=== PATIENT | male | born 1950 | race Caucasian/White ===

== ENCOUNTER 2017-02-25 00:46 | Emergency (ER) | payer OTHER ==
[~2017-02-25] VITALS: Ht 180.3 cm; Wt 80.3 kg
[~2017-02-25 00:46] MED LIST: ASPI-498 OR; FLUO0.05 TOP; LOSA100T26 PO; METO-158; METO25TA5 PO; PRO125RS PO; TRAM50TA2 PO
[2017-02-25 01:20] LABS: Basophils # (auto) 0 uL; Eosinophils # (auto) 0 uL; Hematocrit 34.1 % (41.0-53.0); Hemoglobin 11.2 g/dL (13.5-17.5); Lymphocytes # (auto) 0.5 uL; Lymphocytes % (auto) 6.8 % (10.0-50.0); Mean Corpuscular Hemoglobin 30.2 pg (28.0-32.0); Mean Corpuscular Hgb Conc. 32.9 g/dL (32.0-36.0); Mean Corpuscular Volume 91.9 fL (80.0-100.0); Mean Platelet Volume 8.1 fL (7.4-10.4); Monocytes # (auto) 0.2 uL; Monocytes % (auto) 2.2 % (0.0-12.0); Neutrophils # (auto) 7.1 uL; Platelet Count (auto) 219 10^3/uL (140-450); Red Cell Distribution Width 16.2 % (11.6-16.0); SUSPECT VIEW TRANSMISSION; White Blood Cell 7.8 10^3/uL (4.4-10.8)
[2017-02-25 01:36] LABS: INR 0.98 (0.9-1.15); Partial Thromboplastin Time 23.8 sec (22.64-33.71); Prothrombin Time 10.7 sec (9.37-12.3)
[2017-02-25 01:39] LABS: Albumin 2.5 g/dL (3.4-5.0); BUN/Creatinine Ratio 16.4; Calcium 8.4 mg/dL (8.5-10.1); Magnesium 2.2 mg/dL (1.6-2.6); Potassium 4.5 mmol/L (3.5-5.1)
[2017-02-25 01:44] LABS: Bilirubin, Total 0.7 mg/dL (0.2-1.0); Total Protein 6.8 g/dL (6.4-8.2)
[2017-02-25] MEDS ORDERED: ENOXAPARIN SOD 80 MG/0.8ML SYRINGE SC ONE (02:15)
[2017-02-25 05:55] VITALS: BP 139/58
[2017-02-25] MEDS ORDERED: traMADol HCL 50 MG TAB PO PRN (06:00)
[2017-02-25] MEDS ORDERED: NALBUPHINE HCL 10 MG/1ml INJECTION IV PRN (06:00)
[2017-02-25] MEDS ORDERED: ACETAMINOPHEN 325 MG TAB PO PRN (06:15)
[2017-02-25] MEDS ORDERED: ALBUTEROL SULF 2.5 MG/0.5ML(0.5%) NEB SOLN NEB PRN (06:15)
[2017-02-25] MEDS ORDERED: PROMETHAZINE HCL 25 MG/ML 1ML IV PRN (06:15)
[2017-02-25] MEDS ORDERED: MORPHINE SULF INJ 2 MG/ML SYRINGE 1ML IV PRN (06:15)
[2017-02-25] MEDS ORDERED: NITROGLYCERIN 0.4 MG SL TAB SL PRN (06:15)
[2017-02-25] MEDS ORDERED: TEMAZEPAM 15 MG CAP PO PRN (06:15)
[2017-02-25] MEDS ORDERED: IOHEXOL 350 MG/ML 100ML IJ ONE (06:17)
[2017-02-25] MEDS ORDERED: ASPirin 81 mg TAB PO SCH (10:00)
[2017-02-25] MEDS ORDERED: HCTZ 25 MG TAB PO SCH (10:00)
[2017-02-25] MEDS ORDERED: METOPROLOL SUCCINATE XL 50 MG TAB PO SCH (10:00)
[2017-02-25] MEDS ORDERED: FAMOTIDINE 20 MG TAB PO SCH (10:00)
[2017-02-25] MEDS ORDERED: ENOXAPARIN SOD 40 MG/0.4 ML SYRINGE SC SCH (10:00)
[2017-02-25] MEDS ORDERED: LOSARTAN POTASSIUM 25 MG TAB PO SCH (10:00)
== END 2017-02-25 06:18 | disposition home or self-care (01) ==
LOC: EDBD 00:46 → ER 00:49
DX: I24.9 Acute ischemic heart disease, unspecified (principal); I11.0 Hypertensive heart disease with heart failure; I50.9 Heart failure, unspecified; I25.10 Atherosclerotic heart disease of native coronary artery without angina pectoris; J44.9 Chronic obstructive pulmonary disease, unspecified; Z88.6 Allergy status to analgesic agent; Z88.0 Allergy status to penicillin; Z88.8 Allergy status to other drugs, medicaments and biological substances
CPT/HCPCS: 36415; 71010; 80053; 83735; 84484; 85025; 85379; 85610; 85730; 87081; 93005; 96372; 99285; J1650

== ENCOUNTER 2019-05-05 05:06 | Emergency (ER) | payer MEDICARE, OTHER ==
[~2019-05-05] VITALS: Ht 162.6 cm; Wt 90.7 kg
[~2019-05-05 05:06] MED LIST changes: -LOSA100T26 PO; +LOSA100T33 PO
[2019-05-05 05:22] VITALS: BP 126/80
== END 2019-05-05 07:39 | disposition left against medical advice (07) ==
LOC: EDBD 05:06 → ER 05:11
DX: R07.9 Chest pain, unspecified (principal); Z53.21 Procedure and treatment not carried out due to patient leaving prior to being seen by health care provider

== ENCOUNTER 2019-05-06 10:51 | Inpatient (IN) | payer MEDICARE, OTHER ==
[~2019-05-06] VITALS: Ht 180.3 cm; Wt 83.9 kg
[2019-05-06] MEDS ORDERED: SODIUM CHLORIDE 0.9% 500 ML IV ONE (11:03)
[2019-05-06] MEDS ORDERED: METOCLOPRAMIDE HCL 5MG/ml INJ 2ml VIAL IV ONE (11:15)
[2019-05-06] MEDS ORDERED: HYDROmorphone HCL 2 MG/ML VL IV ONE ×2 (11:15→13:15)
[2019-05-06] MEDS ORDERED: METOPROLOL TARTRATE 25 MG TAB PO ONE (11:15)
[2019-05-06 11:42] LABS: Alanine Aminotransferase 25 U/L (16-61); Albumin 3.9 g/dL (3.4-5.0); Anion Gap 11 (5-15); Aspartate Aminotransferase 19 U/L (15-37); Blood Urea Nitrogen 26 mg/dL (7-18); Calcium 9.4 mg/dL (8.5-10.1); Carbon Dioxide 20 mmol/L (21-32); Chloride 108 mmol/L (98-107); Glucose 100 mg/dL (74-106); Magnesium 2.4 mg/dL (1.6-2.6); Potassium 3.3 mmol/L (3.5-5.1); Sodium 139 mmol/L (136-145)
[2019-05-06] MEDS ORDERED: PROMETHAZINE HCL 25 MG/ML 1ML IV ONE ×2 (11:45→15:15)
[2019-05-06] MEDS ORDERED: ASPirin 81 mg TAB PO ONE (11:45)
[2019-05-06 11:48] LABS: Alkaline Phosphatase 82 U/L (45-117); BUN/Creatinine Ratio 20.2; Bilirubin, Total 0.7 mg/dL (0.2-1.0); GFR African American 72 mL/min; GFR Non-African American 59 mL/min; Total Protein 8.1 g/dL (6.4-8.2)
[2019-05-06 11:52] LABS: Basophils # (auto) 0.1 uL; Basophils % (auto) 0.8 % (0.0-2.0); Eosinophils # (auto) 0.2 uL; Eosinophils % (auto) 1.6 % (0.0-7.0); Hemoglobin 14.6 g/dL (13.5-17.5); Lymphocytes % (auto) 19.3 % (10.0-50.0); Mean Corpuscular Hemoglobin 32.2 pg (28.0-32.0); Mean Corpuscular Hgb Conc. 33.9 g/dL (32.0-36.0); Monocytes # (auto) 1.1 uL; Monocytes % (auto) 10.4 % (0.0-12.0); Neutrophils % (auto) 67.9 % (37.0-80.0); Platelet Count (auto) 309 10^3/uL (140-450); Red Blood Cells 4.52 10^6/uL (4.5-5.90); White Blood Cell 10.3 10^3/uL (4.4-10.8)
[2019-05-06 12:15] LABS: INR 0.99 (0.9-1.15); Partial Thromboplastin Time 25.7 sec (23.64-32.05)
[2019-05-06] MEDS ORDERED: POTASSIUM CHL 10 Meq TABLET PO ONE (13:15)
[2019-05-06] MEDS ORDERED: IOHEXOL 350 MG/ML 100ML IJ ONE (13:23)
[2019-05-06] MEDS: HYDROmorphone HCL 2 MG/ML VL IV PRN (20:05)
[2019-05-06] MEDS: TICAGRELOR 90 MG TAB PO SCH (21:26)
[2019-05-06 22:57] VITALS: BP 123/74
[2019-05-07] MEDS ORDERED: DIGO50SO2 PO (00:25)
[2019-05-07] MEDS ORDERED: TICA90TA PO (00:25)
[2019-05-07] MEDS: HYDROmorphone HCL 2 MG/ML VL IV PRN ×6 (00:57→21:35)
[2019-05-07] MEDS: PROMETHAZINE HCL 25 MG/ML 1ML IV PRN ×5 (01:08→21:35)
[2019-05-07 05:00] VITALS: BP 154/79
[2019-05-07 08:46] VITALS: BP 130/67
[2019-05-07] MEDS: TICAGRELOR 90 MG TAB PO SCH ×2 (09:45→21:35)
[2019-05-07 13:00] VITALS: BP 128/71
[2019-05-07 16:51] VITALS: BP 143/76
[2019-05-07 22:00] VITALS: BP 114/66
[2019-05-08] MEDS: PROMETHAZINE HCL 25 MG/ML 1ML IV PRN ×5 (01:52→18:24)
[2019-05-08] MEDS: HYDROmorphone HCL 2 MG/ML VL IV PRN ×5 (01:52→18:24)
[2019-05-08 06:56] VITALS: BP 156/71
[2019-05-08 09:00] VITALS: BP 134/93
[2019-05-08] MEDS: TICAGRELOR 90 MG TAB PO SCH (10:15)
[2019-05-08 13:00] VITALS: BP 127/74
[2019-05-08] MEDS ORDERED: POTASSIUM CHL 20 Meq TABLET PO ONE (13:45)
[2019-05-08 15:33] VITALS: BP 127/77
[2019-05-08 17:00] VITALS: BP 162/72
[2019-05-08 19:00] VITALS: BP 146/85
== END 2019-05-08 19:40 | disposition home or self-care (01) | DRG 303 ==
LOC: ER 10:52 → TELE 10:53 → TELE-EAST 22:18
PROVIDERS: ADMIT Specialist; ATTEND Specialist
DX: I25.119 Atherosclerotic heart disease of native coronary artery with unspecified angina pectoris (principal); F11.20 Opioid dependence, uncomplicated; L40.9 Psoriasis, unspecified; I50.9 Heart failure, unspecified; I11.0 Hypertensive heart disease with heart failure; F41.9 Anxiety disorder, unspecified; F32.9 Major depressive disorder, single episode, unspecified; J44.9 Chronic obstructive pulmonary disease, unspecified; I25.2 Old myocardial infarction; Z88.8 Allergy status to other drugs, medicaments and biological substances; Z88.6 Allergy status to analgesic agent; Z88.5 Allergy status to narcotic agent; Z90.49 Acquired absence of other specified parts of digestive tract; Z95.5 Presence of coronary angioplasty implant and graft; Z82.49 Family history of ischemic heart disease and other diseases of the circulatory system; Z72.89 Other problems related to lifestyle; Z79.899 Other long term (current) drug therapy
CPT/HCPCS: 36415; 71045; 71275; 80053; 83735; 83880; 84484; 85025; 85379; 85610; 85730; 87081; 93005; 94761; 96361; 96374; 96375; 96376; G0378

== ENCOUNTER 2019-06-26 17:57 | Emergency (ER) | payer MEDICARE, OTHER ==
[~2019-06-26] VITALS: Ht 180.3 cm; Wt 77.1 kg
[~2019-06-26 17:57] MED LIST changes: -ASPI-498 OR; +DIGO50SO2 PO; -METO25TA5 PO; +TICA90TA PO; -TRAM50TA2 PO
[2019-06-26 19:25] LABS: Basophils # (auto) 0 uL; Basophils % (auto) 0.1 % (0.0-2.0); Eosinophils # (auto) 0 uL; Eosinophils % (auto) 0.1 % (0.0-7.0); Hematocrit 51.1 % (41.0-53.0); Hemoglobin 17.1 g/dL (13.5-17.5); Lymphocytes # (auto) 1.5 uL; Lymphocytes % (auto) 12.4 % (10.0-50.0); Mean Corpuscular Hemoglobin 31.3 pg (28.0-32.0); Mean Corpuscular Hgb Conc. 33.5 g/dL (32.0-36.0); Mean Corpuscular Volume 93.5 fL (80.0-100.0); Monocytes # (auto) 0.4 uL; Monocytes % (auto) 3.4 % (0.0-12.0); Neutrophils # (auto) 10.3 uL; Nucleated Red Blood Cells % 0.2 %; Platelet Count (auto) 279 10^3/uL (140-450); Red Blood Cells 5.46 10^6/uL (4.5-5.90); Red Cell Distribution Width 15.1 % (11.8-14.3); White Blood Cell 12.3 10^3/uL (4.4-10.8)
[2019-06-26 19:33] LABS: Albumin 4.1 g/dL (3.4-5.0); Anion Gap 10 (5-15); Blood Urea Nitrogen 22 mg/dL (7-18); Calcium 9.9 mg/dL (8.5-10.1); Carbon Dioxide 22 mmol/L (21-32); Chloride 108 mmol/L (98-107); Glucose 114 mg/dL (74-106); Magnesium 2.1 mg/dL (1.6-2.6); Potassium 4.2 mmol/L (3.5-5.1); Sodium 140 mmol/L (136-145)
[2019-06-26 19:36] LABS: Alanine Aminotransferase 56 U/L (16-61); Alkaline Phosphatase 78 U/L (45-117); Aspartate Aminotransferase 36 U/L (15-37); BUN/Creatinine Ratio 16.2; Bilirubin, Total 1.1 mg/dL (0.2-1.0); GFR African American 67 mL/min; GFR Non-African American 56 mL/min; Total Protein 8.1 g/dL (6.4-8.2)
[2019-06-26] MEDS ORDERED: ASPirin-EC 325mg tab PO ONE (21:30)
[2019-06-26] MEDS ORDERED: MORPHINE SULFATE 4 MG/ML SYR/VIAL IV ONE (21:30)
[2019-06-26] MEDS ORDERED: PROMETHAZINE HCL 25 MG/ML 1ML IV ONE (23:00)
[2019-06-27] VITALS: BP 134/92
[2019-06-27] MEDS ORDERED: HYDROmorphone HCL 2 MG/ML VL IV ONE (00:45)
[2019-06-27 01:19] LABS: INR 1.01 (0.9-1.15)
== END 2019-06-27 01:13 | disposition home or self-care (01) ==
LOC: ER 18:01
DX: R07.89 Other chest pain (principal); I11.0 Hypertensive heart disease with heart failure; I50.9 Heart failure, unspecified; J44.9 Chronic obstructive pulmonary disease, unspecified; Z98.61 Coronary angioplasty status; Z90.49 Acquired absence of other specified parts of digestive tract; Z88.0 Allergy status to penicillin; Z88.6 Allergy status to analgesic agent
CPT/HCPCS: 36415; 71046; 80053; 83735; 84484; 85025; 85610; 85730; 93005; 96374; 96375; 99284; J1170; J2270; J2550

== ENCOUNTER 2019-07-25 16:58 | Inpatient (IN) | payer MEDICARE, OTHER ==
[~2019-07-25] VITALS: Ht 180.3 cm; Wt 76.4 kg
[2019-07-25] MEDS ORDERED: ASPirin 81 mg TAB PO ONE (20:15)
[2019-07-25] MEDS ORDERED: PROMETHAZINE HCL 25 MG/ML 1ML IV ONE (20:15)
[2019-07-25] MEDS ORDERED: MORPHINE SULFATE 4 MG/ML SYR/VIAL IV ONE (20:15)
[2019-07-25 21:50] LABS: Basophils # (auto) 0 uL; Basophils % (auto) 0.3 % (0.0-2.0); Eosinophils # (auto) 0 uL; Eosinophils % (auto) 0.6 % (0.0-7.0); Hematocrit 40.7 % (41.0-53.0); Hemoglobin 13.8 g/dL (13.5-17.5); Lymphocytes % (auto) 13.5 % (10.0-50.0); Mean Corpuscular Hemoglobin 32.5 pg (28.0-32.0); Mean Corpuscular Volume 95.6 fL (80.0-100.0); Monocytes # (auto) 0.7 uL; Monocytes % (auto) 8.8 % (0.0-12.0); Neutrophils # (auto) 5.9 uL; Neutrophils % (auto) 76.8 % (37.0-80.0); Nucleated Red Blood Cells % 0.3 %; Platelet Count (auto) 173 10^3/uL (140-450); Red Blood Cells 4.25 10^6/uL (4.5-5.90); Red Cell Distribution Width 16.5 % (11.8-14.3); White Blood Cell 7.7 10^3/uL (4.4-10.8)
[2019-07-25 21:59] LABS: Albumin 3.4 g/dL (3.4-5.0); Anion Gap 9 (5-15); Blood Urea Nitrogen 11 mg/dL (7-18); Calcium 9.6 mg/dL (8.5-10.1); Carbon Dioxide 21 mmol/L (21-32); Chloride 109 mmol/L (98-107); Glucose 77 mg/dL (74-106); Potassium 3.6 mmol/L (3.5-5.1); Sodium 139 mmol/L (136-145)
[2019-07-25 22:06] LABS: Alanine Aminotransferase 36 U/L (16-61); Alkaline Phosphatase 71 U/L (45-117); Aspartate Aminotransferase 27 U/L (15-37); BUN/Creatinine Ratio 13.8; Bilirubin, Total 1.4 mg/dL (0.2-1.0); GFR African American 124 mL/min; GFR Non-African American 102 mL/min; Total Protein 6.8 g/dL (6.4-8.2)
[2019-07-26] VITALS (7 sets, daily range): BP systolic 109–137; BP diastolic 71–78
[2019-07-26] MEDS ORDERED: ACETAMINOPHEN 325 MG TAB PO PRN (00:45)
[2019-07-26] MEDS ORDERED: LABETALOL HCL 5 MG/ML ML 20ML VIAL IV ONE (00:45)
[2019-07-26] MEDS ORDERED: TEMAZEPAM 15 MG CAP PO PRN (00:45)
[2019-07-26] MEDS ORDERED: HYDROcodone-ACET 5/325MG TAB PO PRN (00:45)
[2019-07-26] MEDS ORDERED: NITROGLYCERIN 0.4 MG SL TAB SL PRN ×2 (01:15→01:45)
[2019-07-26] MEDS ORDERED: MORPHINE SULF INJ 2 MG/ML SYRINGE 1ML IV PRN ×2 (01:15→01:45)
[2019-07-26] MEDS ORDERED: SODIUM CHLORIDE 0.9% 500 ML IV ONE (01:30)
[2019-07-26] MEDS ORDERED: LORazepam 0.5 MG TAB PO ONE (01:45)
[2019-07-26] MEDS ORDERED: LEVOFLOXACIN 500MG 100 ML IV ONE (02:00)
[2019-07-26 02:48] LABS: INR 0.99 (0.9-1.15); Partial Thromboplastin Time 25.5 sec (23.64-32.05)
[2019-07-26] MEDS: OXYCODONE W/ ACETAMINOPHEN 5/325MG TABLET PO PRN ×3 (03:33→18:41)
[2019-07-26] MEDS ORDERED: PERCOT PO (05:53)
[2019-07-26] MEDS ORDERED: DIGO0.1262 PO (05:53)
[2019-07-26] MEDS: ASPirin 81 mg TAB PO SCH (09:32)
[2019-07-26] MEDS: FAMOTIDINE 20 MG TAB PO SCH ×2 (09:34→21:11)
[2019-07-26] MEDS ORDERED: HYDROmorphone HCL 2 MG/ML VL IV ONE (10:45)
[2019-07-26] MEDS ORDERED: PROMETHAZINE HCL 25 MG/ML 1ML IV ONE (10:45)
[2019-07-26] MEDS ORDERED: ADENOSINE 69 MG in GIVE UN-DILUTED 0 ML IV STA (10:59)
[2019-07-26] MEDS: RANOLAZINE ER 500 MG TAB PO SCH ×2 (14:48→21:11)
[2019-07-26] MEDS: METOPROLOL SUCCINATE XL 50 MG TAB PO SCH (14:48)
[2019-07-26] MEDS: LOSARTAN POTASSIUM 25 MG TAB PO SCH (14:49)
[2019-07-26] MEDS: TICAGRELOR 90 MG TAB PO SCH ×2 (14:49→20:45)
[2019-07-26] MEDS: HCTZ 25 MG TAB PO SCH (14:50)
[2019-07-26] MEDS ORDERED: ATORVASTATIN 20 MG TAB PO SCH (22:00)
[2019-07-27] MEDS ORDERED: LEVOFLOXACIN 500MG 100 ML IV SCH
[2019-07-27] MEDS: OXYCODONE W/ ACETAMINOPHEN 5/325MG TABLET PO PRN ×2 (01:15→09:44)
[2019-07-27 09:05] VITALS: BP 118/64
[2019-07-27 09:30] LABS: BUN/Creatinine Ratio 13.8; Calcium 9.3 mg/dL (8.5-10.1); Potassium 3.7 mmol/L (3.5-5.1)
[2019-07-27 09:33] LABS: Cholesterol 138 mg/dL (< 200)
[2019-07-27 09:38] LABS: HDL Cholesterol 51 mg/dL (40-59); LDL Cholesterol 74 mg/dL (< 100); Triglycerides 131 mg/dL (< 150)
[2019-07-27] MEDS: TICAGRELOR 90 MG TAB PO SCH (09:44)
[2019-07-27] MEDS: ASPirin 81 mg TAB PO SCH (09:44)
[2019-07-27] MEDS: RANOLAZINE ER 500 MG TAB PO SCH (09:44)
[2019-07-27] MEDS: LOSARTAN POTASSIUM 25 MG TAB PO SCH (09:45)
[2019-07-27] MEDS: HCTZ 25 MG TAB PO SCH (09:46)
[2019-07-27] MEDS: METOPROLOL SUCCINATE XL 50 MG TAB PO SCH (09:46)
[2019-07-27] MEDS: FAMOTIDINE 20 MG TAB PO SCH (09:48)
[2019-07-27] MEDS ORDERED: LEVO500T21 PO (10:52)
[2019-07-27] MEDS ORDERED: HYDROmorphone HCL 2 MG/ML VL IV ONE (11:30)
[2019-07-27] MEDS ORDERED: PROMETHAZINE HCL 25 MG/ML 1ML IM ONE (11:30)
[2019-07-27] MEDS ORDERED: PROMETHAZINE HCL 25 MG/ML 1ML IV ONE (11:45)
[2019-07-27 12:14] VITALS: BP 118/64
[2019-07-27 12:45] VITALS: BP 117/75
== END 2019-07-27 14:30 | disposition home or self-care (01) | DRG 291 ==
LOC: ER 16:58 → TELE 16:59 → TELE-WESTW 07-26 03:08
PROVIDERS: ADMIT Nurse Practitioner; ATTEND Internal Medicine
DX: I11.0 Hypertensive heart disease with heart failure (principal); J18.9 Pneumonia, unspecified organism; I50.43 Acute on chronic combined systolic (congestive) and diastolic (congestive) heart failure; I25.10 Atherosclerotic heart disease of native coronary artery without angina pectoris; E78.00 Pure hypercholesterolemia, unspecified; E78.5 Hyperlipidemia, unspecified; I70.0 Atherosclerosis of aorta; F41.9 Anxiety disorder, unspecified; J44.9 Chronic obstructive pulmonary disease, unspecified; I25.2 Old myocardial infarction; Z95.5 Presence of coronary angioplasty implant and graft; Z88.0 Allergy status to penicillin; Z88.8 Allergy status to other drugs, medicaments and biological substances; Z91.048 Other nonmedicinal substance allergy status; Z90.49 Acquired absence of other specified parts of digestive tract; Z82.61 Family history of arthritis; Z82.49 Family history of ischemic heart disease and other diseases of the circulatory system; Z82.3 Family history of stroke; Z83.6 Family history of other diseases of the respiratory system; Z79.899 Other long term (current) drug therapy
CPT/HCPCS: 36415; 71045; 78452; 80048; 80053; 80061; 83880; 84484; 85025; 85379; 85610; 85730; 93017; 93306; 94761; 96365; 96375; G0378; J0153; J1956

== ENCOUNTER 2019-10-24 08:44 | Emergency (ER) | payer MEDICARE, OTHER ==
[~2019-10-24] VITALS: Ht 180.3 cm; Wt 77.1 kg
[~2019-10-24 08:44] MED LIST changes: +DIGO0.12 PO; -DIGO50SO2 PO; +LEVO500T21 PO; +PERCOT PO
[2019-10-24] MEDS ORDERED: SODIUM CHLORIDE 0.9% 1,000 ML IV ONE (09:18)
[2019-10-24 09:33] LABS: Basophils # (auto) 0.1 uL; Basophils % (auto) 0.7 % (0.0-2.0); Eosinophils # (auto) 0.1 uL; Eosinophils % (auto) 0.7 % (0.0-7.0); Hematocrit 43.7 % (41.0-53.0); Hemoglobin 14.9 g/dL (13.5-17.5); Lymphocytes # (auto) 2.9 uL; Lymphocytes % (auto) 29.3 % (10.0-50.0); Mean Corpuscular Volume 94.2 fL (80.0-100.0); Monocytes # (auto) 0.7 uL; Monocytes % (auto) 7.1 % (0.0-12.0); Neutrophils # (auto) 6.1 uL; Neutrophils % (auto) 62.2 % (37.0-80.0); Platelet Count (auto) 231 10^3/uL (140-450); Red Blood Cells 4.64 10^6/uL (4.5-5.90); White Blood Cell 9.8 10^3/uL (4.4-10.8)
[2019-10-24 09:53] LABS: Alanine Aminotransferase 48 U/L (16-61); Albumin 3.7 g/dL (3.4-5.0); Anion Gap 12 (5-15); Aspartate Aminotransferase 19 U/L (15-37); BUN/Creatinine Ratio 24.2; Blood Urea Nitrogen 24 mg/dL (7-18); Calcium 8.9 mg/dL (8.5-10.1); Carbon Dioxide 23 mmol/L (21-32); Chloride 104 mmol/L (98-107); GFR African American 97 mL/min; GFR Non-African American 80 mL/min; Glucose 90 mg/dL (74-106); Potassium 3.5 mmol/L (3.5-5.1); Sodium 139 mmol/L (136-145)
[2019-10-24 09:58] LABS: Alkaline Phosphatase 102 U/L (45-117); Bilirubin, Total 0.7 mg/dL (0.2-1.0); Total Protein 7.9 g/dL (6.4-8.2)
[2019-10-24] MEDS ORDERED: LORazepam 2MG/ML-1ML VIAL IV ONE (13:00)
[2019-10-24 13:04] LABS: Urine Bacteria NONE SEEN /hpf (None Seen); Urine Blood Negative /uL (Negative); Urine Mucus FEW (None Seen); Urine Specific Gravity 1.025 (1.001-1.035); Urine WBC 1 /hpf (0 - 3)
[2019-10-24 13:24] LABS: Amphetamine Screen, Urine NEGATIVE (NEGATIVE); Barbiturate Scree,Urine NEGATIVE (NEGATIVE); Benzodiazephine Screen, Urine NEGATIVE (NEGATIVE); Cannabinoid Screen, Urine NEGATIVE (NEGATIVE); Cocaine Screen, Urine NEGATIVE (NEGATIVE); Opiate Scree,Urine POSITIVE (NEGATIVE); Phencyclidine Screen, Urine NEGATIVE (NEGATIVE)
[2019-10-24 13:26] VITALS: BP 147/92
== END 2019-10-24 14:14 | disposition home or self-care (01) ==
LOC: ER 08:44
DX: R07.89 Other chest pain (principal); I25.2 Old myocardial infarction; I25.10 Atherosclerotic heart disease of native coronary artery without angina pectoris; I11.0 Hypertensive heart disease with heart failure; I50.9 Heart failure, unspecified; J44.9 Chronic obstructive pulmonary disease, unspecified; E78.5 Hyperlipidemia, unspecified; Z90.49 Acquired absence of other specified parts of digestive tract; Z79.2 Long term (current) use of antibiotics; Z79.899 Other long term (current) drug therapy; Z88.0 Allergy status to penicillin; Z88.5 Allergy status to narcotic agent; Z88.8 Allergy status to other drugs, medicaments and biological substances
CPT/HCPCS: 36415; 71046; 80053; 80162; 80307; 81001; 83735; 84443; 84484; 85025; 93005; 96374; 99284; J2060; J7030

== ENCOUNTER 2020-03-22 07:42 | Emergency (ER) | payer MEDICARE, OTHER ==
[~2020-03-22] VITALS: Ht 180.3 cm; Wt 72.6 kg
[2020-03-22 09:11] VITALS: BP 150/84
[2020-03-22] MEDS ORDERED: PROMETHAZINE HCL 25 MG/ML 1ML IV ONE (10:00)
[2020-03-22] MEDS ORDERED: HYDROmorphone HCL 2 MG/ML VL IV ONE (10:00)
[2020-03-22] MEDS ORDERED: PROMETHAZINE HCL 25 MG/ML 1ML IM ONE (10:30)
[2020-03-22] MEDS ORDERED: HYDROmorphone HCL 2 MG/ML VL IM ONE (10:30)
== END 2020-03-22 10:34 | disposition home or self-care (01) ==
LOC: ER 07:42
DX: G89.18 Other acute postprocedural pain (principal); M25.561 Pain in right knee; I11.0 Hypertensive heart disease with heart failure; I50.9 Heart failure, unspecified; J44.9 Chronic obstructive pulmonary disease, unspecified; E78.5 Hyperlipidemia, unspecified; I25.2 Old myocardial infarction; Z90.49 Acquired absence of other specified parts of digestive tract; Z98.61 Coronary angioplasty status; Z88.0 Allergy status to penicillin; Z88.6 Allergy status to analgesic agent; Z88.8 Allergy status to other drugs, medicaments and biological substances
CPT/HCPCS: 93971; 96372

== ENCOUNTER 2020-04-22 00:55 | Emergency (ER) | payer MEDICARE, OTHER ==
[~2020-04-22] VITALS: Ht 180.3 cm; Wt 72.6 kg
[2020-04-22 05:15] VITALS: BP 183/92
[2020-04-22] MEDS ORDERED: cloNIDine HCL 0.1 MG TAB ONE (05:18)
[2020-04-22] MEDS ORDERED: cloNIDine HCL 0.1 MG TAB PO ONE (06:00)
[2020-04-22] MEDS ORDERED: ASPirin 81 mg TAB PO ONE (07:30)
== END 2020-04-22 08:26 | disposition left against medical advice (07) ==
LOC: ER 00:56
DX: I11.0 Hypertensive heart disease with heart failure (principal); I50.9 Heart failure, unspecified; J44.9 Chronic obstructive pulmonary disease, unspecified; F41.9 Anxiety disorder, unspecified; E78.5 Hyperlipidemia, unspecified; I25.2 Old myocardial infarction; Z90.49 Acquired absence of other specified parts of digestive tract; Z98.61 Coronary angioplasty status; Z88.0 Allergy status to penicillin; Z88.6 Allergy status to analgesic agent; Z88.8 Allergy status to other drugs, medicaments and biological substances
CPT/HCPCS: 71046; 93005

== ENCOUNTER 2020-05-07 16:14 | Inpatient (IN) | payer MEDICARE, OTHER ==
[~2020-05-07] VITALS: Ht 180.3 cm; Wt 65.8 kg
[2020-05-07 17:51] LABS: Basophils # (auto) 0 10 ^3/uL (0-0.2); Basophils % (auto) 0.5 % (0.0-2.0); Eosinophils # (auto) 0.1 10 ^3/uL (0-0.8); Eosinophils % (auto) 0.8 % (0.0-7.0); Hemoglobin 13.2 g/dL (13.5-17.5); Lymphocytes # (auto) 1.9 10 ^3/uL (0.4-5.4); Lymphocytes % (auto) 21.6 % (10.0-50.0); Mean Corpuscular Hemoglobin 29.2 pg (28.0-32.0); Mean Corpuscular Hgb Conc. 33.1 g/dL (32.0-36.0); Mean Corpuscular Volume 88.4 fL (80.0-100.0); Monocytes % (auto) 11.6 % (0.0-12.0); Neutrophils # (auto) 5.8 10 ^3/uL (1.6-8.6); Neutrophils % (auto) 65.5 % (37.0-80.0); Nucleated Red Blood Cells % 0.1 %; Platelet Count (auto) 250 10^3/uL (140-450); Red Blood Cells 4.52 10^6/uL (4.5-5.90); Red Cell Distribution Width 14.2 % (11.8-14.3); White Blood Cell 8.9 10^3/uL (4.4-10.8)
[2020-05-07 18:07] LABS: INR 1.04 (0.9-1.15); Partial Thromboplastin Time 24.8 sec (23.0-31.2)
[2020-05-07 18:08] LABS: Albumin 3.5 g/dL (3.4-5.0); Anion Gap 6 (5-15); Blood Urea Nitrogen 13 mg/dL (7-18); Calcium 9.8 mg/dL (8.5-10.1); Carbon Dioxide 26 mmol/L (21-32); Chloride 106 mmol/L (98-107); Glucose 112 mg/dL (74-106); Sodium 138 mmol/L (136-145)
[2020-05-07 18:13] LABS: Alanine Aminotransferase 14 U/L (16-61); Alkaline Phosphatase 121 U/L (45-117); Aspartate Aminotransferase 14 U/L (15-37); BUN/Creatinine Ratio 13.8; Bilirubin, Total 0.6 mg/dL (0.2-1.0); GFR African American 103 mL/min; GFR Non-African American 85 mL/min; Total Protein 8.1 g/dL (6.4-8.2)
[2020-05-07 18:25] LABS: Potassium 2.7 mmol/L (3.5-5.1)
[2020-05-07] MEDS ORDERED: HYDROmorphone HCL 2 MG/ML VL IV ONE (21:30)
[2020-05-07] MEDS ORDERED: ASPirin 81 mg TAB PO ONE (21:30)
[2020-05-07] MEDS ORDERED: ONDANSETRON HCL 4 MG/2 ML VIAL IV ONE (21:30)
[2020-05-07] MEDS ORDERED: NITROGLYCERIN 0.4 MG SL TAB SL PRN (22:45)
[2020-05-07] MEDS ORDERED: PROMETHAZINE HCL 25 MG/ML 1ML IV PRN (22:45)
[2020-05-07] MEDS ORDERED: HYDROmorphone HCL 2 MG/ML VL IV PRN (22:45)
[2020-05-07] MEDS ORDERED: MORPHINE SULF INJ 2 MG/ML SYRINGE 1ML IV PRN (22:45)
[2020-05-07 22:59] LABS: Magnesium 2.4 mg/dL (1.6-2.6)
[2020-05-08] MEDS ORDERED: HYDROmorphone HCL 2 MG/ML VL IV PRN (02:45)
[2020-05-08 07:41] VITALS: BP 184/93
[2020-05-08] MEDS ORDERED: ASPirin 81 mg TAB PO ONE (10:00)
[2020-05-08] MEDS ORDERED: CLOPIDOGREL BISULFATE 75 MG TAB PO ONE (10:00)
== END 2020-05-08 08:20 | disposition left against medical advice (07) | DRG 303 ==
LOC: ER 16:14 → TELE 16:15
PROVIDERS: ADMIT Specialist; ATTEND Specialist
DX: I25.110 Atherosclerotic heart disease of native coronary artery with unstable angina pectoris (principal); I70.0 Atherosclerosis of aorta; L40.9 Psoriasis, unspecified; E78.5 Hyperlipidemia, unspecified; I11.0 Hypertensive heart disease with heart failure; I50.9 Heart failure, unspecified; F41.9 Anxiety disorder, unspecified; J44.9 Chronic obstructive pulmonary disease, unspecified; Z79.02 Long term (current) use of antithrombotics/antiplatelets; Z80.0 Family history of malignant neoplasm of digestive organs; I25.2 Old myocardial infarction; Z80.1 Family history of malignant neoplasm of trachea, bronchus and lung; Z80.3 Family history of malignant neoplasm of breast; Z80.42 Family history of malignant neoplasm of prostate; Z80.8 Family history of malignant neoplasm of other organs or systems; Z81.8 Family history of other mental and behavioral disorders; Z82.0 Family history of epilepsy and other diseases of the nervous system; Z82.3 Family history of stroke; Z82.49 Family history of ischemic heart disease and other diseases of the circulatory system; Z82.5 Family history of asthma and other chronic lower respiratory diseases; Z82.62 Family history of osteoporosis; Z83.3 Family history of diabetes mellitus; Z79.899 Other long term (current) drug therapy; Z88.8 Allergy status to other drugs, medicaments and biological substances; Z88.0 Allergy status to penicillin; Z88.5 Allergy status to narcotic agent; Z88.1 Allergy status to other antibiotic agents; Z88.6 Allergy status to analgesic agent; Z53.29 Procedure and treatment not carried out because of patient's decision for other reasons; Z90.49 Acquired absence of other specified parts of digestive tract; Z98.61 Coronary angioplasty status
CPT/HCPCS: 36415; 71046; 80053; 83735; 83880; 84484; 85025; 85610; 85730; 93005; G0378; J2405

== ENCOUNTER 2023-10-13 06:02 | Inpatient (IN) | payer MEDICARE, OTHER ==
[2023-10-08 14:22] LABS: Urine Bacteria NONE SEEN /hpf (None Seen); Urine Blood Negative /uL (Negative); Urine Clarity Clear (Clear); Urine Color Yellow (Yellow); Urine Hyaline Cast FEW /lpf (0 - 2); Urine Protein, UAD TRACE (Negative); Urine Specific Gravity 1.027 (1.001-1.035); Urine Urobilinogen Normal (Negative); Urine WBC 1 /hpf (0 - 3); Urine pH 5.5 (5.0-8.0)
[~2023-10-13] VITALS: Ht 180.3 cm; Wt 79.4 kg
[~2023-10-13 06:02] MED LIST changes: +ATOR10TA52 PO; +CLOP75TA28 PO; -DIGO0.12 PO; +DOXA4TAB83 PO; -FLUO0.05 TOP; +HYDR-4798 PO; -LEVO500T21 PO; -METO-158; +METO-158 PO; +OMEP1CAP70 PO; -PERCOT PO; -PRO125RS PO; -TICA90TA PO
[2023-10-13] MEDS ORDERED: ACETAMINOPHEN IV 1000 MG/100ML (10MG/ML) IV ONE (06:45)
[2023-10-13] MEDS ORDERED: PREGABALIN CAPSULE 75 MG CAP PO ONE (06:45)
[2023-10-13] MEDS ORDERED: BUPIVACAINE 0.25% INJ 50ML VIAL ONE (06:46)
[2023-10-13] MEDS ORDERED: TRANEXAMIC ACID 0 ML ONE (06:46)
[2023-10-13] MEDS ORDERED: VANCOMYCIN HCL 1000 MG VL ONE ×2 (06:48→07:23)
[2023-10-13] MEDS ORDERED: MORPHINE SULF PF 5 MG/10 ML VIAL ONE (06:50)
[2023-10-13] MEDS ORDERED: KETOROLAC TROMETH 30 MG/ML 1ML VIAL ONE (06:50)
[2023-10-13] MEDS ORDERED: LIDOCAINE W/ EPINEPHRINE 2% INJ 20ML VIAL ONE (06:59)
[2023-10-13] MEDS ORDERED: TRANEXAMIC ACID 20 ML ONE (06:59)
[2023-10-13] MEDS ORDERED: BUPIVACAINE HCL 0 ML ONE (07:00)
[2023-10-13] MEDS ORDERED: PROMETHAZINE HCL 25 MG/ML 1ML ONE (07:13)
[2023-10-13] MEDS ORDERED: HYDROmorphone HCL 2 MG/ML VL/or syr IV PRN ×3 (07:15→10:15)
[2023-10-13] MEDS ORDERED: METOCLOPRAMIDE HCL 5MG/ml INJ 2ml VIAL IV PRN (07:15)
[2023-10-13] MEDS ORDERED: ceFAZolin 2 GM/D5W100ml 0 ML IV ONE (07:20)
[2023-10-13] MEDS ORDERED: fentaNYL CITRATE 100 MCG/2 ML VL ONE (07:21)
[2023-10-13] MEDS ORDERED: MIDAZOLAM HCL 2MG/2ML 2ml VIAL (1mg/ml) ONE (07:21)
[2023-10-13] MEDS ORDERED: PROPOFOL 10 MG/ML 20 ML IV ONE ×2 (07:22→10:18)
[2023-10-13] MEDS ORDERED: DexAMETHasone SOD PHOS 10MG/1ML VIAL INJ ONE (07:22)
[2023-10-13] MEDS ORDERED: SODIUM CHLORIDE LOCK 10 ML ONE ×2 (07:22→08:42)
[2023-10-13 07:27] LABS: Basophils # (auto) 0 10 ^3/uL (0-0.2); Basophils % (auto) 0.4 % (0.0-2.0); Eosinophils # (auto) 0.1 10 ^3/uL (0-0.8); Eosinophils % (auto) 0.9 % (0.0-7.0); Hematocrit 38.6 % (41.0-53.0); Hemoglobin 12.9 g/dL (13.5-17.5); Lymphocytes # (auto) 1.8 10 ^3/uL (0.4-5.4); Lymphocytes % (auto) 29.9 % (10.0-50.0); Mean Corpuscular Hemoglobin 29.9 pg (28.0-32.0); Mean Corpuscular Hgb Conc. 33.5 g/dL (32.0-36.0); Mean Corpuscular Volume 89.1 fL (80.0-100.0); Monocytes # (auto) 0.6 10 ^3/uL (0-1.3); Monocytes % (auto) 9.7 % (0.0-12.0); Neutrophils # (auto) 3.6 10 ^3/uL (1.6-8.6); Neutrophils % (auto) 59.1 % (37.0-80.0); Red Blood Cells 4.33 10^6/uL (4.5-5.90); Red Cell Distribution Width 15.3 % (11.8-14.3); White Blood Cell 6.1 10^3/uL (4.4-10.8)
[2023-10-13 07:44] LABS: Partial Thromboplastin Time 28.8 SEC (24.5-34.5); Prothrombin Time 10.5 sec (9.3-11.8)
[2023-10-13] MEDS ORDERED: DexAMETHasone SOD PHOS 4 MG/1ML SDV INJ ONE (08:31)
[2023-10-13] MEDS ORDERED: EPINEPHrine HCL 1 MG/1 ML AMP ONE (08:31)
[2023-10-13] MEDS ORDERED: BUPIVACAINE HCL 50 ML ONE (08:32)
[2023-10-13 08:44] LABS: Alanine Aminotransferase 102 U/L (7-40); Albumin 3.9 g/dL (3.2-4.8); Alkaline Phosphatase 144 U/L (46-116); Aspartate Aminotransferase 56 U/L (13-40); Bilirubin, Total 0.8 mg/dL (0.2-1.0); Calcium 9.2 mg/dL (8.5-10.1); Carbon Dioxide 24 mmol/L (20-30); Glucose 80 mg/dL (74-106); Potassium 3.7 mmol/L (3.5-5.1); Sodium 138 mmol/L (136-145)
[2023-10-13 08:45] LABS: Anion Gap 7 (5-15); BUN/Creatinine Ratio 10.7 (10.0-20.0); Blood Urea Nitrogen 9 mg/dL (9-23); Chloride 107 mmol/L (98-107); Total Protein 6.6 g/dL (5.7-8.2)
[2023-10-13] MEDS ORDERED: LIDOCAINE 2% JELLY 11ml (GLYDO) ONE (10:07)
[2023-10-13] MEDS ORDERED: ONDANSETRON HCL 4 MG/2 ML VIAL IV PRN (10:15)
[2023-10-13] MEDS ORDERED: NITROGLYCERIN 0.4 MG SL TAB SL PRN (10:15)
[2023-10-13] MEDS ORDERED: LACTATED RINGER'S 1,000 ML IV SCH (10:15)
[2023-10-13] MEDS ORDERED: MORPHINE SULFATE INJ 2 MG/ml SYRG IV PRN (10:15)
[2023-10-13] MEDS ORDERED: HYDROcodone-ACET 10/325MG TAB PO PRN (10:15)
[2023-10-13 10:52] VITALS: PULSE 83; RESP 12; O2SAT 96
[2023-10-13] MEDS ORDERED: METOPROLOL SUCCINATE XL 50 MG TAB PO ONE ×2 (12:30→15:15)
[2023-10-13] MEDS ORDERED: hydrALAZINE HCL 20 MG/ML VL IV PRN (12:30)
[2023-10-13] MEDS ORDERED: hydrALAZINE HCL 20 MG/ML VL ONE (12:32)
[2023-10-13] MEDS ORDERED: HYDROmorphone HCL 2 MG/ML VL/or syr IV ONE (13:32)
[2023-10-13] MEDS ORDERED: HYDROcodone-ACET 10/325MG TAB PO ONE (15:00)
[2023-10-13] MEDS ORDERED: LOSARTAN POTASSIUM 50 MG TAB PO ONE ×2 (15:16→21:00)
[2023-10-13 16:45] VITALS: BP 144/82; PULSE 73; RESP 18; TEMP 98.1; O2SAT 96
[2023-10-13] MEDS: LACTATED RINGER'S 1,000 ML IV SCH (17:52)
[2023-10-13] MEDS: SODIUM CHLOR 0.9% PF (SALINE LOCK) 10ML VIAL/SYR IV SCH ×2 (17:53→21:07)
[2023-10-13] MEDS: HYDROmorphone HCL 2 MG/ML VL/or syr IV PRN ×2 (18:01→21:05)
[2023-10-13 20:00] VITALS: BP 129/65; PULSE 69; PULSE 73; RESP 18; TEMP 97.3; O2SAT 93
[2023-10-13] MEDS: DOCUSATE SOD 100 MG CAP PO SCH (20:58)
[2023-10-13] MEDS: DOXAZOSIN MESYL 2 MG TAB PO SCH (20:58)
[2023-10-13] MEDS ORDERED: hydroCHLOROthiazide 25 MG TAB PO ONE (21:00)
[2023-10-13] MEDS: VANCOMYCIN 1GM/200ML 200 ML IV SCH (21:44)
[2023-10-13 22:00] VITALS: BP 129/65; PULSE 73; RESP 18; TEMP 97.9; O2SAT 93
[2023-10-13] MEDS ORDERED: oxyCODONE ER 10 MG TAB PO SCH (22:00)
[2023-10-14] VITALS (7 sets, daily range): BP systolic 115–159; BP diastolic 47–77; PULSE 58–80; RESP 16–20; TEMP 97.8–99.1; O2SAT 93–98
[2023-10-14] MEDS: HYDROmorphone HCL 2 MG/ML VL/or syr IV PRN ×6 (01:29→22:09)
[2023-10-14] MEDS: LACTATED RINGER'S 1,000 ML IV SCH (01:50)
[2023-10-14] MEDS: SODIUM CHLOR 0.9% PF (SALINE LOCK) 10ML VIAL/SYR IV SCH ×3 (06:25→21:30)
[2023-10-14] MEDS: PANTOPRAZOLE 40 MG TAB PO SCH (08:32)
[2023-10-14] MEDS: CLOPIDOGREL BISULFATE 75 MG TAB PO SCH (08:32)
[2023-10-14] MEDS: DOCUSATE SOD 100 MG CAP PO SCH ×2 (08:33→21:30)
[2023-10-14] MEDS: hydroCHLOROthiazide 25 MG TAB PO SCH (08:34)
[2023-10-14] MEDS: ATORVASTATIN 20 MG TAB PO SCH (08:34)
[2023-10-14] MEDS: LOSARTAN POTASSIUM 50 MG TAB PO SCH (08:34)
[2023-10-14] MEDS: METOPROLOL SUCCINATE XL 50 MG TAB PO SCH (08:35)
[2023-10-14 08:43] LABS: Basophils # (auto) 0 10 ^3/uL (0-0.2); Basophils % (auto) 0.1 % (0.0-2.0); Eosinophils # (auto) 0 10 ^3/uL (0-0.8); Hematocrit 36.2 % (41.0-53.0); Hemoglobin 11.9 g/dL (13.5-17.5); Lymphocytes # (auto) 1.2 10 ^3/uL (0.4-5.4); Mean Corpuscular Hemoglobin 29.8 pg (28.0-32.0); Mean Corpuscular Hgb Conc. 32.8 g/dL (32.0-36.0); Mean Corpuscular Volume 90.7 fL (80.0-100.0); Monocytes # (auto) 0.9 10 ^3/uL (0-1.3); Monocytes % (auto) 8.5 % (0.0-12.0); Neutrophils # (auto) 8.8 10 ^3/uL (1.6-8.6); Neutrophils % (auto) 80.4 % (37.0-80.0); Nucleated Red Blood Cells % 0.1 %; Red Blood Cells 3.99 10^6/uL (4.5-5.90); Red Cell Distribution Width 15.4 % (11.8-14.3); White Blood Cell 10.9 10^3/uL (4.4-10.8)
[2023-10-14 08:54] LABS: Alanine Aminotransferase 68 U/L (7-40); Albumin 3.6 g/dL (3.2-4.8); Alkaline Phosphatase 112 U/L (46-116); Anion Gap 8 (5-15); Aspartate Aminotransferase 32 U/L (13-40); BUN/Creatinine Ratio 14.1 (10.0-20.0); Bilirubin, Total 0.6 mg/dL (0.2-1.0); Blood Urea Nitrogen 12 mg/dL (9-23); Calcium 9.2 mg/dL (8.5-10.1); Carbon Dioxide 22 mmol/L (20-30); Chloride 106 mmol/L (98-107); Glucose 156 mg/dL (74-106); Potassium 3.7 mmol/L (3.5-5.1); Sodium 136 mmol/L (136-145)
[2023-10-14] MEDS ORDERED: LOSARTAN POTASSIUM 50 MG TAB PO SCH (10:00)
[2023-10-14] MEDS ORDERED: METOPROLOL TARTRATE 50 MG TAB PO SCH (10:00)
[2023-10-14] MEDS ORDERED: PATIENTS OWN MEDICATION (Losartan Potassium & Hydrochlo (Losartan Potassium/Hydroc) 1 TAB) PO SCH (10:00)
[2023-10-14] MEDS: VANCOMYCIN 1GM/200ML 200 ML IV SCH (10:09)
[2023-10-14] MEDS: HYDROcodone-ACET 10/325MG TAB PO PRN ×2 (10:10→16:28)
[2023-10-14] MEDS: CARISOPRODOL 350 MG TAB PO PRN (12:20)
[2023-10-14] MEDS: DOXAZOSIN MESYL 2 MG TAB PO SCH (21:34)
[2023-10-15] MEDS: HYDROmorphone HCL 2 MG/ML VL/or syr IV PRN ×6 (02:22→23:45)
[2023-10-15 05:00] VITALS: BP 112/61; PULSE 72; RESP 18; TEMP 98.4; O2SAT 94
[2023-10-15] MEDS: SODIUM CHLOR 0.9% PF (SALINE LOCK) 10ML VIAL/SYR IV SCH ×3 (06:32→21:34)
[2023-10-15 08:40] VITALS: BP 147/65; PULSE 73; RESP 17; TEMP 97.7; O2SAT 94
[2023-10-15] MEDS: ATORVASTATIN 20 MG TAB PO SCH (09:35)
[2023-10-15] MEDS: PANTOPRAZOLE 40 MG TAB PO SCH (09:35)
[2023-10-15] MEDS: METOPROLOL SUCCINATE XL 50 MG TAB PO SCH (09:35)
[2023-10-15] MEDS: DOCUSATE SOD 100 MG CAP PO SCH ×2 (09:36→21:42)
[2023-10-15] MEDS: LOSARTAN POTASSIUM 50 MG TAB PO SCH (09:36)
[2023-10-15] MEDS: hydroCHLOROthiazide 25 MG TAB PO SCH (09:36)
[2023-10-15] MEDS: CLOPIDOGREL BISULFATE 75 MG TAB PO SCH (09:51)
[2023-10-15] MEDS: HYDROcodone-ACET 10/325MG TAB PO PRN ×2 (10:57→16:55)
[2023-10-15] MEDS: CARISOPRODOL 350 MG TAB PO PRN ×2 (12:07→21:29)
[2023-10-15 12:42] VITALS: BP 148/65; PULSE 63; RESP 17; TEMP 98.8; O2SAT 93
[2023-10-15 16:35] VITALS: BP 100/44; PULSE 60; RESP 16; TEMP 98.6; O2SAT 95
[2023-10-15 18:05] LABS: Hemoglobin 11.6 g/dL (13.5-17.5)
[2023-10-15 20:00] VITALS: BP 104/57; PULSE 65; RESP 16; TEMP 98.4; O2SAT 93
[2023-10-15] MEDS: DOXAZOSIN MESYL 2 MG TAB PO SCH (21:21)
[2023-10-15 22:00] VITALS: BP 104/57; PULSE 65; RESP 16; TEMP 98.4; O2SAT 93
[2023-10-16] MEDS: HYDROmorphone HCL 2 MG/ML VL/or syr IV PRN ×3 (04:12→13:42)
[2023-10-16 05:00] VITALS: BP 116/61; PULSE 83; RESP 16; TEMP 98; O2SAT 96
[2023-10-16] MEDS: SODIUM CHLOR 0.9% PF (SALINE LOCK) 10ML VIAL/SYR IV SCH ×2 (06:07→13:00)
[2023-10-16] MEDS: PANTOPRAZOLE 40 MG TAB PO SCH (08:52)
[2023-10-16] MEDS: hydroCHLOROthiazide 25 MG TAB PO SCH (08:52)
[2023-10-16] MEDS: LOSARTAN POTASSIUM 50 MG TAB PO SCH (08:53)
[2023-10-16] MEDS: DOCUSATE SOD 100 MG CAP PO SCH (08:53)
[2023-10-16] MEDS: ATORVASTATIN 20 MG TAB PO SCH (08:53)
[2023-10-16] MEDS: CLOPIDOGREL BISULFATE 75 MG TAB PO SCH (08:53)
[2023-10-16] MEDS: METOPROLOL SUCCINATE XL 50 MG TAB PO SCH (08:54)
[2023-10-16 09:14] VITALS: BP 120/65; PULSE 85; RESP 20; TEMP 98.2; O2SAT 96
[2023-10-16] MEDS: CARISOPRODOL 350 MG TAB PO PRN (10:24)
[2023-10-16] MEDS: HYDROcodone-ACET 10/325MG TAB PO PRN (11:50)
[2023-10-16 12:13] VITALS: BP 120/65; PULSE 85; TEMP 36.8
[2023-10-16 12:39] VITALS: BP 148/73; PULSE 103; RESP 20; TEMP 98; O2SAT 93
[2023-10-16 14:12] VITALS: BP 136/78; PULSE 92; RESP 18
== END 2023-10-16 15:04 | disposition home or self-care (01) | DRG 489 ==
LOC: SUR 06:02 → TELE 10:12 → TELE-WESTW 16:35 → WEST WING 10-14 18:58
PROVIDERS: ADMIT Orthopaedic Surgery Adult Reconstructive Orthopaedic Surgery; ATTEND Internal Medicine
PROC: 0SUV09Z Supplement Right Knee Joint, Tibial Surface with Liner, Open Approach (ICD-10-PCS; 2023-10-13)
PROC: 0LX Tendons, Transfer (ICD-10-PCS; 2023-10-13)
PROC: 0SPC09Z Removal of Liner from Right Knee Joint, Open Approach (ICD-10-PCS; principal; 2023-10-13 08:55)
DX: T84.89XA Other specified complication of internal orthopedic prosthetic devices, implants and grafts, initial encounter (principal); I25.10 Atherosclerotic heart disease of native coronary artery without angina pectoris; E78.5 Hyperlipidemia, unspecified; Y79.2 Prosthetic and other implants, materials and accessory orthopedic devices associated with adverse incidents; Z96.651 Presence of right artificial knee joint; I10 Essential (primary) hypertension; R74.01 Elevation of levels of liver transaminase levels; M24.561 Contracture, right knee; Z83.3 Family history of diabetes mellitus; Z80.0 Family history of malignant neoplasm of digestive organs; Z80.1 Family history of malignant neoplasm of trachea, bronchus and lung; Z80.3 Family history of malignant neoplasm of breast; Z80.42 Family history of malignant neoplasm of prostate; Z82.3 Family history of stroke; Z80.8 Family history of malignant neoplasm of other organs or systems; Z81.8 Family history of other mental and behavioral disorders; Z82.0 Family history of epilepsy and other diseases of the nervous system; Z82.49 Family history of ischemic heart disease and other diseases of the circulatory system; Z82.5 Family history of asthma and other chronic lower respiratory diseases; Z82.62 Family history of osteoporosis; Z88.0 Allergy status to penicillin; Z91.048 Other nonmedicinal substance allergy status; Z95.1 Presence of aortocoronary bypass graft; Y92.89 Other specified places as the place of occurrence of the external cause
CPT/HCPCS: 36415; 71045; 73562; 80053; 81001; 85014; 85018; 85025; 85610; 85730; 86850; 86900; 86901; 97110; 97116; 97163; G0378; J0131; J0171; J1100; J1642; J1885; J2250; J2704; J3490